=== PATIENT | female | born 1995 | race Hispanic/Latino ===

== ENCOUNTER 2016-09-24 21:36 | Emergency (ER) | payer MEDICAID ==
[2016-09-24 22:29] VITALS: BP 107/63; PULSE 66; RESP 18; TEMP 98.3; O2SAT 98
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
[2016-09-24 22:49] VITALS: BMI 25.8
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
== END 2016-09-25 01:30 | disposition home or self-care (01) ==
LOC: ED 21:36
DX: S02.2XXA Fracture of nasal bones, initial encounter for closed fracture (principal); Y04.0XXA Assault by unarmed brawl or fight, initial encounter

== ENCOUNTER 2016-10-09 14:45 | Emergency (ER) | payer MEDICAID ==
[2016-10-09 14:46] VITALS: BMI 25.8
[2016-10-09 15:09] VITALS: RESP 18; TEMP 98.2; O2SAT 100
[2016-10-09] MEDS ORDERED: Sodium Chloride 0.9% 1,000 ML IV STA (15:10)
[2016-10-09 16:00] LABS: ADD MANUAL DIFF? NO
[2016-10-09 16:21] LABS: ALB/GLOB RATIO 1.4 (1.1-1.8); ALKALINE PHOSPHATASE 47 U/L (38-133); ALT/SGPT 29 U/L (7-56); AST/SGOT 21 U/L (15-39); BILIRUBIN,TOTAL 0.4 mg/dL (0.2-1.3); BLOOD UREA NITROGEN 19 mg/dL (7-21); CALCIUM 9.7 mg/dL (8.4-10.5); CARBON DIOXIDE 30 mmol/L (21-33); CHLORIDE 99 mmol/L (98-107); GFR AFRICAN-AMERICAN > 60; GLUCOSE,RANDOM 85 mg/dL (70-110); LIPASE 47 U/L (23-300); POTASSIUM 3.9 mmol/L (3.6-5.0); SODIUM 138 mmol/L (132-148); TOTAL PROTEIN 7.4 g/dL (5.8-8.3)
[2016-10-09 16:25] LABS: BASO # 0.08 K/mm3 (0.0-2.0); EOS # 0.1 (0.0-0.7); EOS % 1.2 % (1.5-5.0); GRAN # 5.94 (1.4-6.5); GRAN % 71.4 % (50.0-68.0); HEMATOCRIT 39.8 % (36.0-48.0); LYMPH # 1.7 (1.2-3.4); LYMPH % 20.5 % (22.0-35.0); MEAN CORPUSCULAR HEMOGLOBIN 28.9 pg (25.0-35.0); MEAN CORPUSCULAR HGB CONC 33.7 g/dl (31.0-37.0); MEAN PLATELET VOLUME 11.5 fl (7.0-11.0); MONO # 0.5 (0.1-0.6); MONO % 5.9 % (1.0-6.0); PLATELET COUNT 222 10^3/uL (120.0-450.0); RED CELL DISTRIBUTION WIDTH 12.9 % (11.5-14.5); WHITE BLOOD COUNT 8.3 10^3/ul (4.5-11.0)
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
[2016-10-09 16:46] VITALS: BP 130/69; PULSE 70
[2016-10-09 17:23] LABS: PH,URINE 6.5 (4.7-8.0); URINE APPEARANCE CLEAR (CLEAR); URINE BILIRUBIN NEGATIVE (NEGATIVE); URINE BLOOD NEGATIVE (NEGATIVE); URINE COLOR YELLOW (YELLOW); URINE GLUCOSE (UA) NEGATIVE (NEGATIVE); URINE KETONE NEGATIVE (NEGATIVE); URINE LEUKOCYTE ESTERASE NEGATIVE Leu/uL (NEGATIVE); URINE PROTEIN NEGATIVE mg/dL (<30 mg/dL); URINE UROBILINOGEN 0.2 E.U./dL (<1 E.U./dL)
== END 2016-10-09 18:40 | disposition home or self-care (01) ==
LOC: ED 14:45
DX: R10.9 Unspecified abdominal pain (principal)
CPT/HCPCS: 80053; 81003; 82948; 83690; 84703; 85025; 87086; 96374; 96375; 99283; J2405; J7040